=== PATIENT | male | born 1995 | race Caucasian/White ===

== ENCOUNTER 2018-03-28 21:24 | Emergency (ER) | payer SELFPAY ==
[~2018-03-28] VITALS: Ht 182.9 cm; Wt 65.4 kg
[2018-03-28 21:29] VITALS: BP 111/69
== END 2018-03-28 21:59 | disposition home or self-care (01) ==
LOC: ED 21:40
DX: Z00.00 Encounter for general adult medical examination without abnormal findings (principal); F17.210 Nicotine dependence, cigarettes, uncomplicated
CPT/HCPCS: 99281